=== PATIENT | male | born 1970 | race Caucasian/White ===

== ENCOUNTER 2018-10-08 03:35 | Emergency (ER) | END 2018-10-08 06:22 | disposition home or self-care (01) ==

== ENCOUNTER 2018-10-18 05:02 | Emergency (ER) | END 2018-10-18 06:41 | disposition home or self-care (01) ==

== ENCOUNTER 2019-06-10 02:46 | Emergency (ER) | payer BC ==
[~2019-06-10] VITALS: Ht 182.9 cm; Wt 130.4 kg
[~2019-06-10 02:46] MED LIST: ALBU8.5H8 INH; AMLO-147 PO; ASCO500C7 PO; ASPI-535 PO; BENZ-6 PO; CLIN300C10 PO; CYAN500T46 PO; DULA1.5P SQ; ERYT1OIN6 LEFT EYE; GEMF600T8 PO; LINA5TAB PO; LISD30CA5 PO; LISI-471 PO; METF100010 PO; METO-335 PO; PRED20TA PO; TAMS-14 PO
[2019-06-10 02:57] VITALS: BP 160/104; PULSE 81; RESP 17; Ht 182.9 cm; Wt 130.4 kg
[2019-06-10] MEDS ORDERED: FLUORESCEIN STRIP LEFT EYE ONE (04:00)
[2019-06-10] MEDS ORDERED: ERYTHROMYCIN 1 GM OPH OINT LEFT EYE ONE (04:30)
--- NOTE | 2019-06-15 10:12 | ERD ---
ER Documentation Chief Complaint Chief Complaint LEFT EYE PAIN AND REDNESS, NO TRAUMA HPI 40-year-old male presents with complaint of left eye redness since this morning. States that the eye hurts when he blinks. Denies any treatments. Does not recall any trauma or foreign bodies entering the eye. Denies any fevers, difficulty seeing, flashing lights, discharge from the eye. ROS All systems reviewed and are negative except as per history of present illness. Medications Home Meds Active Scripts Erythromycin Base (Erythromycin) 1 Gm Oint...g., 1 APPLIC LEFT EYE QID for 7 Days Prov:JON WINSTON 06/10/19 Prednisone* (Prednisone*) 20 Mg Tab, 60 MG PO DAILY for 4 Days, TAB Prov:PASILABANPARKER F 10/18/18 Albuterol Sulfate* (Proair HFA*) 8.5 Gm Hfa.aer.ad, 2 PUFF INH Q4H PRN for WHEEZING AND SOB, #1 INHALER Prov:PARKER WEBSTER 10/18/18 Benzonatate* (Tessalon Perle*) 100 Mg Capsule, 100 MG PO Q8H PRN for COUGH, #20 CAP Prov:PASILAPARKER WOOD F 10/18/18 Clindamycin Hcl* (Clindamycin Hcl*) 300 Mg Capsule, 300 MG PO TID for 10 Days, CAP Prov:PASILAPARKER WOOD F 10/18/18 Benzonatate* (Tessalon Perle*) 100 Mg Capsule, 100 MG PO Q8H PRN for COUGH, #14 CAP Prov:JON PINEDA 10/08/18 Tamsulosin Hcl* (Flomax*) 0.4 Mg Cap.er.24h, 0.4 MG PO QPM, #20 CAP Prov:JON PINEDA 10/08/18 Reported Medications Metformin Hcl* (Metformin Hcl*) 1,000 Mg Tablet, 1000 MG PO WITH BREAKFAST DINNE, #30 TAB 10/08/18 Amlodipine Besylate* (Amlodipine Besylate*) 10 Mg Tablet, 10 MG PO DAILY, #30 TAB 10/08/18 Gemfibrozil* (Gemfibrozil*) 600 Mg Tablet, 600 MG PO BID, TAB 10/08/18 Lisinopril* (Lisinopril*) 20 Mg Tablet, 20 MG PO DAILY, #30 TAB 10/08/18 Lisdexamfetamine Dimesylate (Vyvanse) 30 Mg Capsule, 30 MG PO AM, #30 CAP 10/08/18 Metoprolol Succinate* (Toprol XL*) 25 Mg Tab.sr.24h, 25 MG PO BID, #30 TAB 10/08/18 Dulaglutide (Trulicity) 1.5 Mg/0.5 Ml Pen.injctr, 1.5 MG SQ QWEDNESDAY 10/08/18 Linagliptin (TRADJENTA) 5 Mg Tablet, 5 MG PO DAILY, TAB 10/08/18 Ascorbic Acid* (Vitamin C*) 500 Mg Capsule.sa, 500 MG PO DAILY, CAP 10/08/18 Cyanocobalamin* (Vitamin B12*) 500 Mcg Tab, 500 MCG PO DAILY, TAB 10/08/18 Aspirin Ec (Aspir 81) 81 Mg Tablet.dr, 81 MG PO DAILY, #30 TAB 10/08/18 Allergies Allergies: Coded Allergies: Penicillins (Unverified Allergy, Unknown, 10/08/18) Uncoded Allergies: BEE STING (Allergy, Severe, 10/18/18) PMhx/Soc History of Surgery: Yes (right knee) Anesthesia Reaction: No Hx Neurological Disorder: No Hx Respiratory Disorders: No (SLEEP APNEA) Hx Cardiac Disorders: Yes (HTN; HIGH CHOLESTEROL) Hx Psychiatric Problems: Yes (BINGE EATING D/O) Hx Miscellaneous Medical Probl: Yes (DIABETES,) Hx Alcohol Use: No Hx Substance Use: No Hx Tobacco Use: No Smoking Status: Never smoker FmHx Family History: No diabetes, No coronary disease, No other Physical Exam Physical Exam Const: No acute distress Head: Atraumatic Eyes: Injected sclera of left eye. ENT: Normal External Ears, Nose and Mouth. Neck: Full range of motion. No meningismus. Resp: Clear to auscultation bilaterally Cardio: Regular rate and rhythm, no murmurs Abd: Soft, non tender, non distended. Normal bowel sounds Skin: No petechiae or rashes Back: No midline or flank tenderness Ext: No cyanosis, or edema Neur: Awake and alert Psych: Normal Mood and Affect Eye Exam w/ Wood's Lamp - bilateral: Visual Acuity: WNL Visual [place]: Intact in all four quadrants bilaterally Lac ducts/glands: No swelling Lids w/ evertion: Normal, no foreign body Conj/[place]: Abrasion noted, negative Fluorescein/[place]'s Anterior Chamber: Clear Tonopen readings: 20 Retina exam: No obvious abnormality Results 24 hrs Current Medications Medications Dose Sig/Nevaeh Start Time Status Last (Trade) Ordered Route PRN Stop Time Admin Dose Reason Admin Fluorescein 1 strip ONCE ONCE 06/10/19 DC Sodium LEFT EYE 04:00 ([id number] 06/10/19 04:01 p) 1 applic ONCE ONCE 06/10/19 DC 06/10/19 Erythromycin LEFT EYE 04:30 04:38 06/10/19 04:31 (Erythromycin Oph Oint) Procedures/MDM MDM: Visual acuity is within normal limits and there is no sign of any kind of retinal detachment. Ureña lamp did show moderate corneal abrasion in the 12:00 area of left eye. I explained to patient that, her ulcer cannot be definitively ruled out. Patient denies wearing contacts. Patient was given erythromycin in the ER and discharged with same. Patient advised needs to follow-up within 24 hours at [facility] for further treatment. I explained to patient the risks of not doing so, including possible loss of vision and serious infection. I have low suspicion bacterial conjunctivitis, corneal ulcer, retained eye foreign body, glaucoma, periorbital cellulitis, orbital cellulitis, hordeolum, dacrocystitis, globe rupture. At this time, patient is stable for discharge and outpatient management. I have instructed the patient to follow-up with his/her primary care physician in 1-2 days as well as [facility]. I have discussed with the patient the possibility of needing to see a specialist for further workup and imaging studies if symptoms persist. I have instructed the patient to promptly return to the ER for any new or worsening symptoms including but not limited to increased pain, fever, nausea, vomiting, weakness or LOC. The patient and/or family e xpressed understanding of and agreement with this plan. All questions were answered. Home care instructions were provided. DISCLAIMER: Inadvertent spelling and grammatical errors are likely due to EHR/dictation software use and do not reflect on the overall quality of patient care. Also, please note that the electronic time recorded on this note does not necessarily reflect the actual time of the patient encounter. Departure Diagnosis: Primary Impression: Corneal abrasion Condition: Stable Patient Instructions: Corneal Abrasion Referrals: [facility] Hours: Mon - Fri 9:00 AM - 5:00 PM Additional Instructions: Please follow-up with [facility] within 24 hours. Return to ER if not improving. JON WINSTON Jun 15, 2019 10:12
== END 2019-06-10 04:39 | disposition home or self-care (01) ==
LOC: FTE 02:46
DX: S05.02XA Injury of conjunctiva and corneal abrasion without foreign body, left eye, initial encounter (principal); E11.9 Type 2 diabetes mellitus without complications; I10 Essential (primary) hypertension; X58.XXXA Exposure to other specified factors, initial encounter; Y92.9 Unspecified place or not applicable; Z79.82 Long term (current) use of aspirin; Z79.84 Long term (current) use of oral hypoglycemic drugs
CPT/HCPCS: 99283